=== PATIENT | female | born 1940 | race Caucasian/White ===

== ENCOUNTER 2018-09-20 06:50 | Day surgery (SDC) | payer MEDICARE, BC ==
[2018-09-20] MEDS ORDERED: PROPOFOL 10 MG/ML VIAL IV ONE (06:51)
[2018-09-20] MEDS ORDERED: LIDOCAINE 2% MDV (20MG/ML) 20ML VIAL IV ONE (06:51)
--- NOTE | 2018-09-20 15:51 | Operative Note ---
OPERATION: COLONOSCOPY. PREOPERATIVE DIAGNOSIS: Change in bowel habits. POSTOPERATIVE DIAGNOSES: 1. Colonic diverticulosis. 2. Normal-appearing sigmoid anastomosis. PREPARATION QUALITY: Good. ESTIMATED BLOOD LOSS: None. SPECIMENS: None. COMPLICATIONS: None. PROCEDURE: After informed consent was obtained from the patient, she was placed in the left lateral decubitus position in the endoscopy suite, sedated and monitored by the department of anesthesia. Once sedation was achieved, digital rectal exam was performed which was unremarkable. A well-lubricated CNL480 colonoscope was inserted into the rectum and advanced to the cecum. Preparation quality was good. The cecum, ileocecal valve, and appendiceal orifice were examined multiple times. The cecum was entered twice at minimum. The cecum, ascending colon, transverse colon, descending colon, sigmoid colon, and rectum were carefully inspected in retrograde fashion. There were scattered diverticula in the ascending colon and sigmoid colon. No polyps were seen throughout the length of the colon. No mass, lesions, or strictures were seen. There was also noted to be visible staple line in the sigmoid consistent with prior anastomosis. Forward and J-turn views of the rectum and anorectum were unremarkable. The endoscope was straightened, the rectal ampulla deflated, and the endoscope was removed. RECOMMENDATIONS: The patient should resume her medical program. Given her age, I would not repeat her exam unless symptoms warrant. As always, thank you for allowing me to participate in the healthcare of your patients. CC: Arnold CUETO
== END 2018-09-20 09:35 | disposition home or self-care (01) ==
LOC: HOP 06:50
PROVIDERS: ATTEND Internal Medicine Gastroenterology
DX: R19.4 Change in bowel habit (principal); K57.30 Diverticulosis of large intestine without perforation or abscess without bleeding; K63.89 Other specified diseases of intestine; K21.9 Gastro-esophageal reflux disease without esophagitis; R73.03 Prediabetes; E03.9 Hypothyroidism, unspecified; E78.00 Pure hypercholesterolemia, unspecified; K58.9 Irritable bowel syndrome, unspecified

== ENCOUNTER 2018-12-24 06:52 | Day surgery (SDC) | payer MEDICARE, BC ==
[~2018-12-24 06:52] MED LIST: ACETAMINOPHEN 1,000 MG/100 ML BTL IVPB ONE; FAMOTIDINE 20MG TABLET PO ONE; METOCLOPRAMIDE 10 MG TABLET PO ONE; SCOPOLAMINE 1 PATCH TDSY TD ONE
[2018-12-24] MEDS ORDERED: RINGERS SOLUTION,LACTATED 1,000 ML IV ONE ×2 (07:45→09:25)
[2018-12-24] MEDS ORDERED: BUPIVACAINE 0.25% W/EPI MPF 30ML VIAL SQ ONE (09:35)
[2018-12-24] MEDS ORDERED: HYDROCODONE/APAP 5/325MG TABLET PO ONE (10:23)
--- NOTE | 2018-12-25 14:30 | Operative Note ---
DATE OF SURGERY: 12/24/2018 SURGEON: Daniel Tucker DO PREOPERATIVE DIAGNOSIS: Cholelithiasis with chronic cholecystitis. POSTOPERATIVE DIAGNOSIS: Cholelithiasis with chronic cholecystitis. OPERATION: Laparoscopic cholecystectomy. INDICATION: The patient is a 78-year-old female who is having ongoing right subcostal postprandial pain. Imaging studies did reveal cholelithiasis. Her clinical history fit the recurrent biliary colic. We did discuss cholecystectomy versus medical management. She desired surgical intervention. Risks include but are not limited to bleeding, infection, ductal injury, possible conversion to open, postoperative bile leak. She understood this fully. Due to her large midline laparotomy incision, I did elect to go with a left upper quadrant Visiport. PROCEDURE: Her abdomen was prepped and draped in the usual sterile fashion. Adequate timeout was performed. She did receive preoperative DVT prophylaxis. At this time, left upper quadrant was cannulated with an 11 mm Visiport and all abdominal layers traversed under direct visualization. At this time, additional 5 mm epigastric and two 5 mm right subcostal ports were placed. Midline was covered with dense adhesions although I could see the gallbladder clearly with a 10 mm angled lens. Further cephalad and lateral retraction applied to the gallbladder. This was dissected free from surrounding tissue. The triangle of Calot was thoroughly dissected out. There was no aberrant anatomy, no posterior ductal structures. The cystic duct and cystic artery were clearly identified. Each one was doubly clipped and cut in a standard fashion. Gallbladder was taken off the liver bed with HODA Harmonic. Right upper quadrant was rechecked and found to be hemostatic. No bleeding. No bile leaking. No bowel injury noted. The patient was leveled out. The pneumoperitoneum was released. All ports were removed. The fascia was closed with 0 Vicryl in a [id number] fashion. The skin at all incisions was closed with 4-0 Vicryl. The patient was taken to the recovery room in stable condition. FINDINGS AT THE TIME OF SURGERY: Chronic cholecystitis. MTDD
== END 2018-12-24 10:50 | disposition home or self-care (01) ==
LOC: SUR 06:52
PROVIDERS: ATTEND Surgery
DX: K80.10 Calculus of gallbladder with chronic cholecystitis without obstruction (principal); E11.9 Type 2 diabetes mellitus without complications; E78.00 Pure hypercholesterolemia, unspecified; E03.9 Hypothyroidism, unspecified; K21.9 Gastro-esophageal reflux disease without esophagitis; Z98.61 Coronary angioplasty status
CPT/HCPCS: 36416; 82948; J7120